=== PATIENT | female | born 1975 | race Caucasian/White ===

== ENCOUNTER 2016-05-28 08:55 | Emergency (ER) | payer MEDICAID | END 2016-05-28 10:04 | disposition home or self-care (01) | LOC: D.ER 08:55 | DX: F41.9 Anxiety disorder, unspecified (principal); B02.9 Zoster without complications ==

== ENCOUNTER 2016-07-31 21:27 | Emergency (ER) | payer MEDICAID | END 2016-08-01 00:53 | disposition home or self-care (01) | LOC: D.ER 21:27 | DX: J20.9 Acute bronchitis, unspecified (principal); F17.200 Nicotine dependence, unspecified, uncomplicated ==

== ENCOUNTER → 2016-09-17 14:11 | Outpatient (CLI) | payer MEDICAID | END | disposition home or self-care (01) | LOC: D.MAMMO 08-29 10:15 | DX: Z12.31 Encounter for screening mammogram for malignant neoplasm of breast (principal) ==

== ENCOUNTER → 2016-12-24 17:01 | Outpatient (CLI) | payer MEDICAID | END | disposition home or self-care (01) | LOC: D.MAMMO 11:15 | DX: R92.8 Other abnormal and inconclusive findings on diagnostic imaging of breast (principal) ==

== ENCOUNTER 2018-03-20 11:22 | Emergency (ER) | payer MEDICAID ==
[~2018-03-20] VITALS: Ht 157.5 cm; Wt 50.0 kg
[2018-03-20 12:01] VITALS: BP 99/67; Ht 157.5 cm; Wt 50.0 kg
[2018-03-20] MEDS ORDERED: MINIPRESS1 MG PO (12:03)
[2018-03-20] MEDS ORDERED: ATIVAN1 MG PO (12:03)
[2018-03-20] MEDS ORDERED: ZOLOFT100 MG PO (12:03)
== END 2018-03-20 13:00 | disposition left against medical advice (07) ==
LOC: D.ER 11:22
DX: N64.4 Mastodynia (principal)